=== PATIENT | male | born 1975 | race Two or more races ===

== ENCOUNTER 2019-09-06 20:19 | Emergency (ER) | payer MEDICAID ==
[~2019-09-06] VITALS: Ht 162.6 cm; Wt 104.3 kg
[2019-09-06] MEDS ORDERED: OLANZAPINE 10 MG VIAL IM ONE (20:38)
--- NOTE | 2019-09-06 20:38 | NUR ---
PT AAOX4. AMBULATORY WITH STEADY GIAT BIBRA C/O +HI AND PLAN TO CUT PEOPLES HEADS OFF. -SI. PLACED IN BED 15 ON MONITOR AND PULSE OX. PLACED IN GOWN AND BELONINGS PLACED IN LOCKER. NO ACUTE DISTRESS NOTED. VSS. SITTER AT BEDSIDE.
[2019-09-06 20:41] LABS: APPEARANCE,URINE Clear (CLEAR); BILIRUBIN,URINE SMALL (NEGATIVE); BLOOD, URINE Trace-lysed Ery/uL (NEGATIVE); COLOR,URINE Yellow (YELLOW); KETONES,URINE Negative (NEGATIVE); LEUKOCYTE ESTERASE ,URINE Negative (NEGATIVE); NITRITE, URINE Negative (NEGATIVE); PROTEIN,URINE Negative (NEGATIVE); UGLUCOSE Negative (NEGATIVE); UROBILINOGEN,URINE 0.2 EU/dL (0.2)
[2019-09-06] MEDS: OLANZAPINE 10 MG VIAL IM ONE (20:41)
--- NOTE | 2019-09-06 20:47 | NUR ---
URINE SENT TO LAB
[2019-09-06 20:50] LABS: BACTERIA,URINE Rare /HPF (None Seen); SQUAMOUS EPITHELIAL CELL,UR Few /HPF (None Seen); WBC,URINE NONE SEEN /HPF (0-3)
[2019-09-06 21:09] LABS: BASOPHILS # (AUTO) 0.1 /CMM (0.0-0.2); BASOPHILS % (AUTO) 1.2 % (0.0-2.0); EOSINOPHILS % (AUTO) 0.8 % (0.0-6.0); HEMATOCRIT 47 % (39-51); HEMOGLOBIN 15.7 g/dL (13.5-17.5); LYMPHOCYTES # (AUTO) 2.6 /CMM (0.8-4.8); LYMPHOCYTES % (AUTO) 37.3 % (20.0-44.0); MEAN CORPUSCULAR HGB CONC 34 g/dl (31.0-36.0); MEAN CORPUSCULAR VOLUME 101 fL (80-96); MONOCYTES # (AUTO) 0.7 /CMM (0.1-1.30); MONOCYTES % (AUTO) 10.4 % (2.0-12.0); NEUTROPHILS # (AUTO) 3.5 /CMM (1.8-8.9); NEUTROPHILS % (AUTO) 50.3 % (43.0-81.0); PLATELET COUNT (AUTO) 254 /CMM (150-450); RED BLOOD CELL COUNT(AUTO) 4.61 MIL/uL (4.5-6.0); WHITE BLOOD COUNT (AUTO) 6.9 K/uL (4.3-11.0)
[2019-09-06 21:23] LABS: CALCIUM, SERUM 8.6 mg/dL (8.5-10.1); CARBON DIOXIDE 24 mmol/L (21-32); CHLORIDE 105 mmol/L (98-107); CREATININE 0.9 mg/dL (0.6-1.3); GLUCOSE 111 mg/dL (74-106); POTASSIUM 3.9 mmol/L (3.5-5.1); SODIUM SERUM 140 mmol/L (136-145); UREA NITROGEN, BLOOD 19 mg/dL (7-18)
[2019-09-06 21:29] LABS: ALANINE AMINOTRANSFERASE 50 U/L (12-78); ALBUMIN 3.2 g/dL (3.4-5.0); ALCOHOL, BLOOD 93 mg/dL (0-0); ALKALINE PHOSPHATASE 82 U/L (46-116); ASPARTATE AMINOTRANSFERASE 35 U/L (15-37); BILIRUBIN,DIRECT 0.1 mg/dL (0.0-0.2); BILIRUBIN,TOTAL 0.3 mg/dL (0.2-1.0); SALICYLATE 0.9 mg/dL (2.8-20.0); TOTAL PROTEIN, SERUM 6.9 g/dL (6.4-8.2)
[2019-09-06 21:30] LABS: ACETAMINOPHEN < 10 ug/ml (10-30)
--- NOTE | 2019-09-06 23:32 | NUR ---
CLINICAL INFORMATION SENT TO [facility] INTAKE
--- NOTE | 2019-09-07 04:40 | NUR ---
PER MALINA FROM [facility] INTAKE, CLINICAL INFORMATION BEING REVIEWED AT [facility], NO BED AVAILABLE AT THIS TIME.
--- NOTE | 2019-09-07 05:12 | NUR ---
patient will be accepted to [facility]. Aceptted by Dr Velasquez Number for report ext [phone] Please send after 9am due to short staff Addendum: 09/07/19 at 0636 by ELIZABETH BED ASSIGNMENT [id number]
--- NOTE | 2019-09-07 06:23 | NUR ---
PT RESTING COMFORTABLY IN BED. VITAL SIGNS STABLE. NO ACUTE DISTRESS NOTED AT THIS TIME. SITTER STILL AT BEDSIDE, WILL CONTINUE TO MONITOR
--- NOTE | 2019-09-07 06:34 | NUR ---
REPORT GIVEN TO LIBBY BARNETT FROM [facility] FOR [facility]
--- NOTE | 2019-09-07 06:43 | NUR ---
CALLED [facility] FOR TRANSPORTATION. ETA 30-45MINUTES, CONFIRMATION #[id number]
[2019-09-07 07:21] VITALS: BP 149/94
--- NOTE | 2019-09-07 07:22 | NUR ---
REPORT GIVEN TO [facility] FOR TRANSPORTATION [facility]
== END 2019-09-07 07:23 | disposition short-term general hospital (02) ==
LOC: ER 20:23
DX: M79.604 Pain in right leg (principal); F15.10 Other stimulant abuse, uncomplicated; R45.850 Homicidal ideations; F10.10 Alcohol abuse, uncomplicated; Y90.4 Blood alcohol level of 80-99 mg/100 ml
CPT/HCPCS: 36415; 80048; 80076; 80305; 80307; 80329; 81001; 85025; 96372; 99285; G0480; J3490; 81000-TC

== ENCOUNTER 2019-10-07 20:45 | Emergency (ER) | payer MEDICAID ==
[~2019-10-07] VITALS: Ht 162.6 cm; Wt 136.1 kg
--- NOTE | 2019-10-07 21:39 | NUR ---
called pt in wr. no one responded.
[2019-10-07] MEDS ORDERED: LIDOCAINE 5% (PATCH) 1 EA PATCH TP STA (22:15)
[2019-10-07] MEDS ORDERED: CYCLOBENZAPRINE 10 MG TABLET PO ONE (22:30)
[2019-10-07] MEDS ORDERED: KETOROLAC TROMETHAMINE INJ 60 MG/2 ML VIAL IM ONE (22:30)
[2019-10-07] MEDS ORDERED: CYCLOBENZAPRINE 10 MG TABLET ONE (22:43)
[2019-10-07] MEDS ORDERED: KETOROLAC TROMETHAMINE INJ 30 MG/ML VIAL ONE (22:43)
--- NOTE | 2019-10-07 23:29 | NUR ---
Patient discharged to home in stable condition. Written and verbal after care instructions given. Patient verbalizes understanding of instruction and RX. Pt ambulated with gait.vss.
[2019-10-07 23:31] VITALS: BP 142/72
== END 2019-10-07 23:31 | disposition home or self-care (01) ==
LOC: ER 20:47
DX: M54.30 Sciatica, unspecified side (principal); M79.605 Pain in left leg; M25.552 Pain in left hip
CPT/HCPCS: 96372; 99283; J1885

== ENCOUNTER 2020-02-15 23:40 | Emergency (ER) | payer MEDICAID ==
[~2020-02-15] VITALS: Ht 160 cm; Wt 117.9 kg
[2020-02-16 00:05] VITALS: BP 152/71
[2020-02-16] MEDS ORDERED: CYCLOBENZAPRINE 10 MG TABLET ONE (01:43)
[2020-02-16] MEDS ORDERED: HYDROCODONE/APAP 10/325MG TABLET ONE (01:43)
[2020-02-16] MEDS ORDERED: ONDANSETRON 4 MG TAB.RAPDIS ONE (01:44)
[2020-02-16] MEDS ORDERED: ONDANSETRON 4 MG TAB.RAPDIS SL ONE (02:00)
[2020-02-16] MEDS ORDERED: CYCLOBENZAPRINE 10 MG TABLET PO ONE (02:00)
[2020-02-16] MEDS ORDERED: HYDROCODONE/APAP 10/325MG TABLET PO ONE (02:00)
== END 2020-02-16 01:47 | disposition home or self-care (01) ==
LOC: ER 23:47
DX: M54.42 Lumbago with sciatica, left side (principal); G89.29 Other chronic pain; E66.01 Morbid (severe) obesity due to excess calories; Z68.42 Body mass index [BMI] 45.0-49.9, adult
CPT/HCPCS: 99284; Q0162